=== PATIENT | female | born 1950 | race Caucasian/White ===

== ENCOUNTER 2016-09-02 10:05 | Day surgery (SDC) | payer MEDICARE, BC ==
[~2016-09-02 10:05] MED LIST: CALTRATE GUMMY1 EACH CH; CRESTOR5 M1 PO; DICLOFENAC SOD100 M2 PO; FISH OIL 1,2001 EAC4 PO; LEXAPRO10 M2 PO; VITAMIN D31000 UNI3 PO; VITAMIN E400 UNI4 PO
== END 2016-09-02 16:10 ==
LOC: SRG 10:05 → SHSC 10:08 → ORW 12:54 → PACU 13:22 → SHSC 13:55
PROC: 0HBT0ZZ Excision of Right Breast, Open Approach (ICD-10-PCS; principal; 2016-09-02)
DX: N60.31 Fibrosclerosis of right breast (principal); N64.1 Fat necrosis of breast; N60.91 Unspecified benign mammary dysplasia of right breast; M19.90 Unspecified osteoarthritis, unspecified site; Z88.0 Allergy status to penicillin; Z79.899 Other long term (current) drug therapy; Z98.890 Other specified postprocedural states
CPT/HCPCS: J0690; J2250; J2765